=== PATIENT | female | born 1970 | race Caucasian/White ===

== ENCOUNTER 2021-07-25 20:22 | Emergency (ER) | payer MEDICAID ==
[~2021-07-25] VITALS: Ht 165.1 cm; Wt 79.4 kg
[2021-07-25 20:30] VITALS: BP 178/90
--- NOTE | 2021-07-25 20:33 | NUR ---
to lobby a/w bed ambulatory
[2021-07-25] MEDS ORDERED: PRED20TA5 PO (22:49)
[2021-07-25 23:09] VITALS: BP 178/90
--- NOTE | 2021-07-25 23:09 | NUR ---
Patient discharged with v/s stable. Written and verbal after care instructions given and explained. Patient verbalized understanding. Ambulatory with steady gait. All questions addressed prior to discharge. Advised to follow up with PMD.
== END 2021-07-25 23:05 | disposition home or self-care (01) ==
LOC: MED 20:22
DX: R21 Rash and other nonspecific skin eruption (principal); L29.9 Pruritus, unspecified
CPT/HCPCS: 99282